=== PATIENT | male | born 1935 | race Caucasian/White ===

== ENCOUNTER 2017-01-30 16:55 | Emergency (ER) | payer MEDICARE ==
[2017-01-30 17:47] LABS: HEMOGLOBIN 11.8 gm/dl (14.0-17.5); RED BLOOD COUNT 3.9 M/UL (4.20-5.50); WHITE BLOOD COUNT 7.7 K/UL (4.5-11.0)
== END 2017-01-30 22:14 | disposition short-term general hospital (02) ==
LOC: ER1 16:55
PROVIDERS: Emergency Medicine
DX: I63.9 Cerebral infarction, unspecified (principal); R47.81 Slurred speech; I25.10 Atherosclerotic heart disease of native coronary artery without angina pectoris; I10 Essential (primary) hypertension; J44.9 Chronic obstructive pulmonary disease, unspecified; Z95.5 Presence of coronary angioplasty implant and graft; Z79.82 Long term (current) use of aspirin; Z79.899 Other long term (current) drug therapy
CPT/HCPCS: 36415; 70450; 71010; 80053; 81001; 82550; 82553; 83874; 84484; 85025; 85610; 85730; 87077; 87086; 87186; 99285

== ENCOUNTER 2020-08-13 15:14 | Inpatient (IN) | payer MEDICARE, OTHER ==
[~2020-08-13] VITALS: Ht 175.3 cm; Wt 84.8 kg
[~2020-08-13 15:14] MED LIST: ADVAIR 250-501 EACH INH; ALBUTEROL2.5 MG/3 M INH; AMMONIUM LACTA140 GM TP; ASPIRIN CHEWABL81 MG PO; BEVESPI INH; BUMETANIDE2 MG PO; COUMADIN4 MG PO; COUMADIN5 MG PO; DOXYCYCLINE HY100 MG PO; ECOTRIN81 MG PO; ELIQUIS 5 MG TAB5 MG PO; ELIQUIS5 MG PO; ESZOPICLONE3 MG PO; FERROCITE324 MG PO; IMDUR ER TAB 6060 MG PO; LANTUS INS100 UTS/M1 SC; LASIX TAB 20 MG20 MG PO; LASIX20 MG PO; LATANOPROST2.5 ML EYERT; LEVOFLOXACIN250 MG PO; LIPITOR TAB 2020 MG PO; LUNESTA3 MG PO; MEDROL4 MG PO; MIRAPEX0.5 MG PO; MULTI-VITAMIN1 EACH PO; NORCO 10-325 T1 EACH PO; OMNICEF 300 MG300 MG PO; PREDNISONE10 MG PO; PREVACID30 MG PO; PROTONIX20 MG PO; PROVENTIL HFA6.7 GM INH; PROZAC 10 MG CA10 MG PO; SYMBICORT 16010.2 GM INH; TOPROL XL100 MG PO; TRAZODONE HCL100 MG PO; ZESTRIL2.5 MG PO
[2020-08-13 16:34] LABS: HEMOGLOBIN 12.1 gm/dl (14.0-17.5); RED BLOOD COUNT 4.15 M/UL (4.20-5.50); WHITE BLOOD COUNT 5.5 K/UL (4.5-11.0)
[2020-08-13] MEDS ORDERED: BEVESPI AEROS10.7 GM INH (22:50)
[2020-08-13] MEDS ORDERED: BUMETANIDE2 MG PO (23:00)
[2020-08-13] MEDS ORDERED: ELIQUIS 5 MG TAB5 MG PO (23:01)
[2020-08-13] MEDS ORDERED: LANTUS SOL100 UNIT/1 SQ (23:02)
[2020-08-13] MEDS ORDERED: IMDUR ER TAB 6060 MG PO (23:03)
[2020-08-13] MEDS ORDERED: PREVACID30 MG PO (23:04)
[2020-08-13] MEDS ORDERED: TRAZODONE HCL100 MG PO (23:05)
[2020-08-15 06:39] LABS: HEMOGLOBIN 11.1 gm/dl (14.0-17.5); RED BLOOD COUNT 3.8 M/UL (4.20-5.50); WHITE BLOOD COUNT 5.4 K/UL (4.5-11.0)
--- NOTE | 2020-08-16 01:27 | NUR ---
AT BEGINNING OF SHIFT THE PT SEEMED TO BE DOING WELL. RT CAME IN AND GAVE HIM A BREATHING TREATMENT AND THE PT HAD AN O2 SAT OF 97% ON THE AIRVO. THE TECH AND I WENT IN AND CHANGED THE PT AND CLEANED HIM UP AND PUT NEW BEDCLOTHES ON. APPROX 30 MIN LATER TELE CALLS AND SAYS HIS O2 SAT DROPPED TO 54% AND THEN CUT OUT. I WENT BACK TO THE PTS ROOM TO CHECK ON HIM AND THE PULSE OX WASN'T PICKING UP AT ALL. I CALLED TELE AND HAD THEM SEND ME A DIFFERENT CORD. I POPPED THE BATTERIES OUT AND CHANGED THE CORD AND STILL NOTHING. I THEN CALLED TELE BACK AND HAD THEM SEND ME A NEW BOX. I POPPED THE BATTERIES OUT AND CHANGED THE TELE BOX AND STILL NOTHING. I CALLED TELE BACK A THIRD TIME AND ASKED IF THERE WAS ANYTHING ELSE WE COULD DO THAT I DESPERATELY NEEDED TO GET AN ACCURATE O2 READING ON THIS PT. IN BETWEEN ALL THIS I CALLED RESPIRATORY AND TOLD THEM THE SITUATION AND PAWEL CAME UP. I THEN GOT MY PERSONAL PULSE OX AND IT WOULDN'T WELDER OXYHYDROGEN EITHER. I HOOKED THE PT UP TO THE VITAL CART AND TRIED THE REGULAR CLIP ON O2 SENSOR IT ALSO WOULD NOT WORK. I THEN GOT THE ROUSE SILICONE CORD FROM ANOTHER VITAL CART AND TRIED IT. IT ENDED UP WORKING ON AND OFF. AT THAT TIME THE HIGHEST 02 READING WE COULD GET WAS 78%. I CALLED DR. SHELDON AND GOT AN ORDER FOR AN ABG. THE ABG RESULTS ARE IN THE PTS RECORD. THEY WEREN'T GOOD SO I CALLED DR. SHELDON AGAIN AND GOT AN ORDER FOR A BI PAP WITH SETTINGS OF 16/10. BY THIS TIME I HAD GOT THE RESOURCE RN RANJANA IN THE ROOM. RESPIRATORY HOOKED THE PT UP TO A BI PAP. RESOURCE RN AND I TRIED OUT DIFFERENT PULSE OX CORDS, WE TRIED THE FOREHEAD, NASAL, FINGER, TOE, NOTHING WOULD WORK BESIDES THE VITAL CART INTERMITTENTLY. I CONTINUED TO MONITOR THE PTS O2 SAT ON AND OFF AND IT WAS HOLDING STEADY BETWEEN 83 AND 84%. I CALLED DR SHELDON BACK AND EXPLAINED THE SITUATION TO HIM. HE ORDERED ANOTHER ABG, STAT CHEST X RAY, ADJUSTMENTS TO THE BIPAP SETTINGS TO 20/14, AND AN IMMEDIATE TRANSFER TO PCU. DR. SHELDON CAME UP TO SEE THE PT AND THE PTS ABG THAT WAS ORDERED HAD ACTUALLY IMPROVED FROM BEING ON THE BI PAP FOR APPROX 2 HRS. HOWEVER THE PTS CONDITION WASN'T IMPROVING. THE PT WAS BECOMING INCREASINGLY CONFUSED AND TRYING TO CLIMB OUT OF THE BED, WHICH WAS FAR FROM HIS BASELINE. THE PTS COLORING WAS ALSO BAD, HIS SKIN WAS DUSKY AND EXTREMITIES AND LIPS WERE BLUE. DR. SHELDON WANTED ME TO CONTACT THE PTS SON AND LET HIM SPEAK TO HIM. I CONTACTED HIM AND DR. SHELDON SPOKE TO HIM AND UPDATED HIM ON THE SITUATION AND ASKED HIM ABOUT THE VENTILATOR AND BEING INTUBATED. I THEN CALLED REPORT AND TRANSPORTED THE PT TO PCU TO ROOM 6120. WHEN WE GOT THE PT TO 6120, THE NURSE LUCITA AND TECH ALSO HAD AN ISSUE GETTING THE PULSE OX TO READ. I STAYED WHILE THEY KEPT THE PT HOOKED UP TO THE VITAL CART I BROUGHT UNTIL IT WAS FINALLY REGISTERING ON THE HALLWAY MONITORS. I TOLD THE TECH TO SIT BACK THERE WITH THE PT TIL I COULD CONT
[2020-08-16 02:54] LABS: HEMOGLOBIN 11.4 gm/dl (14.0-17.5); RED BLOOD COUNT 3.94 M/UL (4.20-5.50)
[2020-08-16 02:59] LABS: WHITE BLOOD COUNT 10.9 K/UL (4.5-11.0)
[2020-08-16 11:59] LABS: BORDETELLA PARAPERTUSSIS Not Detected (Not Detectd); BORDETELLA PERTUSSIS Not Detected (Not Detectd); CHLAMYDIA PNEUMONIAE Not Detected (Not Detectd); CORONAVIRUS HKU1 Not Detected (Not Detectd); CORONAVIRUS NL63 Not Detected (Not Detectd); CORONAVIRUS OC43 Not Detected (Not Detectd); CORONOAVIRUS 229E Not Detected (Not Detectd); HUMAN METAPNEUMOVIRUS Not Detected (Not Detectd); HUMAN RHINOVIRUS/ENTEROVIRUS Not Detected (Not Detectd); INFLUENZA A Not Detected (Not Detectd); INFLUENZA B Not Detected (Not Detectd); MYCOPLASMA PNEUMONIAE Not Detected (Not Detectd); PARAINFLUENZA VIRUS 1 Not Detected (Not Detectd); PARAINFLUENZA VIRUS 2 Not Detected (Not Detectd); PARAINFLUENZA VIRUS 3 Not Detected (Not Detectd); PARAINFLUENZA VIRUS 4 Not Detected (Not Detectd); RESPIRATORY SYNCYTIAL VIRUS Not Detected (Not Detectd)
[2020-08-16 14:10] LABS: SARS-CoV-2 NOT DETECTED (Not Detectd)
[2020-08-17 04:39] LABS: RED BLOOD COUNT 4.29 M/UL (4.20-5.50)
[2020-08-17 04:40] LABS: WHITE BLOOD COUNT 20.3 K/UL (4.5-11.0)
[2020-08-17 21:12] LABS: HEMOGLOBIN 12.4 gm/dl (14.0-17.5); RED BLOOD COUNT 4.21 M/UL (4.20-5.50)
[2020-08-17 21:20] LABS: WHITE BLOOD COUNT 14.8 K/UL (4.5-11.0)
[2020-08-18 05:01] LABS: RED BLOOD COUNT 4.23 M/UL (4.20-5.50); WHITE BLOOD COUNT 13.6 K/UL (4.5-11.0)
[2020-08-19 04:13] LABS: HEMOGLOBIN 10.5 gm/dl (14.0-17.5); WHITE BLOOD COUNT 10.2 K/UL (4.5-11.0)
[2020-08-19 04:18] LABS: RED BLOOD COUNT 3.66 M/UL (4.20-5.50)
[2020-08-20 04:13] LABS: HEMOGLOBIN 10.4 gm/dl (14.0-17.5); RED BLOOD COUNT 3.59 M/UL (4.20-5.50); WHITE BLOOD COUNT 8.9 K/UL (4.5-11.0)
[2020-08-20 17:05] LABS: HEMOGLOBIN 8.8 gm/dl (14.0-17.5)
[2020-08-20 17:10] LABS: RED BLOOD COUNT 2.95 M/UL (4.20-5.50); WHITE BLOOD COUNT 5.7 K/UL (4.5-11.0)
== END 2020-08-20 20:21 | disposition expired | DRG 291 ==
LOC: ER1 15:14 → CDU 23:06 → M/S 23:06 → CDU 23:06 → M/S 08-14 08:19 → PROG CARE 08-15 23:51 → CCU 08-20 15:17
PROVIDERS: Family Medicine; Internal Medicine Interventional Cardiology; Internal Medicine Nephrology; ADMIT Internal Medicine
PROC: 0W9D3ZZ Drainage of Pericardial Cavity, Percutaneous Approach (ICD-10-PCS; principal; 2020-08-20)
PROC: 5A1935Z Respiratory Ventilation, Less than 24 Consecutive Hours (ICD-10-PCS; 2020-08-20)
PROC: 0BH17EZ Insertion of Endotracheal Airway into Trachea, Via Natural or Artificial Opening (ICD-10-PCS; 2020-08-20)
PROC: 04HY32Z Insertion of Monitoring Device into Lower Artery, Percutaneous Approach (ICD-10-PCS; 2020-08-20)
PROC: 4A133B1 Monitoring of Arterial Pressure, Peripheral, Percutaneous Approach (ICD-10-PCS; 2020-08-20)
PROC: 4A133J1 Monitoring of Arterial Pulse, Peripheral, Percutaneous Approach (ICD-10-PCS; 2020-08-20)
PROC: 02HV33Z Insertion of Infusion Device into Superior Vena Cava, Percutaneous Approach (ICD-10-PCS; 2020-08-20)
PROC: B548ZZA Ultrasonography of Superior Vena Cava, Guidance (ICD-10-PCS; 2020-08-20)
DX: I13.0 Hypertensive heart and chronic kidney disease with heart failure and stage 1 through stage 4 chronic kidney disease, or unspecified chronic kidney disease (principal); A41.02 Sepsis due to Methicillin resistant Staphylococcus aureus; I50.33 Acute on chronic diastolic (congestive) heart failure; J96.01 Acute respiratory failure with hypoxia; G93.41 Metabolic encephalopathy; R65.21 Severe sepsis with septic shock; N17.9 Acute kidney failure, unspecified; E87.3 Alkalosis; J44.1 Chronic obstructive pulmonary disease with (acute) exacerbation; I31.3 Pericardial effusion (noninflammatory); G47.33 Obstructive sleep apnea (adult) (pediatric); E11.22 Type 2 diabetes mellitus with diabetic chronic kidney disease; I80.3 Phlebitis and thrombophlebitis of lower extremities, unspecified; I48.20 Chronic atrial fibrillation, unspecified; I07.1 Rheumatic tricuspid insufficiency; E87.2 Acidosis; D63.1 Anemia in chronic kidney disease; E78.5 Hyperlipidemia, unspecified; E22.2 Syndrome of inappropriate secretion of antidiuretic hormone; D62 Acute posthemorrhagic anemia; I25.10 Atherosclerotic heart disease of native coronary artery without angina pectoris; I27.20 Pulmonary hypertension, unspecified; N18.30 Chronic kidney disease, stage 3 unspecified; G25.81 Restless legs syndrome; R57.0 Cardiogenic shock; Z51.5 Encounter for palliative care; I46.9 Cardiac arrest, cause unspecified; Z66 Do not resuscitate; I95.9 Hypotension, unspecified; Z20.828 Contact with and (suspected) exposure to other viral communicable diseases; Z87.891 Personal history of nicotine dependence; Z99.81 Dependence on supplemental oxygen; Z86.73 Personal history of transient ischemic attack (TIA), and cerebral infarction without residual deficits; Z86.19 Personal history of other infectious and parasitic diseases; Z95.5 Presence of coronary angioplasty implant and graft; Z79.01 Long term (current) use of anticoagulants; Z79.4 Long term (current) use of insulin
CPT/HCPCS: ECHO; 31500; 33016; 36415; 36600; 51702; 71045; 74018; 78580; 80048; 80053; 82550; 82553; 82728; 82803; 82962; 83540; 83550; 83605; 83735; 83874; 83880; 84100; 84484; 85025; 85610; 85730; 86140; 86850; 86900; 86901; 86920; 86922; 87040; 87077; 87081; 87186; 87633; 90471; 92950; 93005; 93306; 93308; 93970; 93971; 94002; 94640; 94660; 94760; 96365; 96366; 96374; 96375; 96376; 97110-GP-CQ; 97116-GP-CQ; 97162; 97166; 97530-GP-CQ; 99152; 99285; A9540; C1751; G0378; J0171; J1644; J1940; J2020; J2060; J2250; J2270; J2370; J2543; J2920; J3010; J3486; J7030; J7040; J7070; Q9965; U0003